=== PATIENT | male | born 1950 ===

== ENCOUNTER → 2023-04-28 | Outpatient (CLI) | payer MEDICARE ==
--- NOTE | 2023-04-30 08:32 | MR ---
EXAMINATION TYPE: MR Prostate wo/w con DATE OF EXAM: 04/28/2023 8:59 AM COMPARISON: None. CLINICAL INDICATION:Male, 72 years old with history of C61 MALIGNANT NEOPLASM OF PROSTATE; Prostate Cancer, Elevated PSA TECHNIQUE: Multi-planar, multi-sequence imaging of the pelvis is performed prior to and following the uncomplicated administration of bolus intravenous gadolinium. CONTRAST: 7.5 Gadavist Interpretive Criteria: PI-RADS v2.1 SERUM PSA: 20.19 on November 2022. SURGICAL PATHOLOGY: No data available. FINDINGS: Prostatic dimensions: 4.8 x 4.8 x 4.5 cm. Ellipsoid Volume:54.29 (PSA density=0.37 ng/mL/mL) CENTRAL GLAND (Central and Transition Zones/CZ+TZ): Multiple bilateral, heterogenous appearing hypertrophic stromal nodules, without suspicious lesion. M edian lobe hypertrophy with protrusion into the base of the bladder. (PI-RADS 2) PERIPHERAL ZONE (PZ): Bilateral linear, indistinct wedgelike areas of low ADC, and low T2 signal, No evidence of masslike a bnormality, or localized perfusional hypervascularity, to further suggest a focus of clinically signi ficant prostate cancer. (PI-RADS 2) SEMINAL VESICLES (SV): Symmetric and unremarkable. PERIPROSTATIC TISSUES: Unremarkable. LYMPH NODES: No enlarged pelvic lymph node. REMAINING PELVIS: Bladder wall is within normal limits given distention. No abnormal free or organized intrapelvic fluid collection. No pathologic bowel dilation or mural thickening. Bilateral fat containing inguinal hernias. OSSEOUS STRUCTURES: No suspicious osseous abnormality. IMPRESSION: 1. No specific features for high-risk prostate cancer. Maximum PI-RADS score: 2. 2. Moderate BPH, estimated gland volume 54.29 mL. 3. No suspicious osseous lesion. No lymphadenopathy. No evidence of prostate adenocarcinoma involving the periprostatic tissues.
== END | disposition home or self-care (01) ==
LOC: RADMRIMAIN 07:53
PROVIDERS: ATTEND Radiology Radiation Oncology
DX: C61 Malignant neoplasm of prostate (principal); N40.0 Benign prostatic hyperplasia without lower urinary tract symptoms
CPT/HCPCS: 72197; A9585

== ENCOUNTER → 2023-06-27 | Outpatient (CLI) | payer MEDICARE ==
--- NOTE | 2023-06-27 18:22 | BD ---
EXAMINATION TYPE: Axial Bone Density DATE OF EXAM: 06/27/2023 CLINICAL HISTORY: 72 years old Male. ICD-10 CODE: C79.51 SECONDARY MALIGNANT NEOPLASM OF BONE Height: 61.25in Weight: 146lb FRAX RISK QUESTIONS: Secondary Osteoporosis: RISK FACTORS HISTORY OF: MEDICATIONS: EXAM MEASUREMENTS: Bone mineral densitometry was performed using the [employer]. Bone mineral density as measured about the Lumbar spine is: ----- L1-L4(G/cm2): 1.419 T Score Values are as follows: ----- L1: 1.1 ----- L2: 1.1 ----- L3: 2.6 ----- L4: 2.6 ----- L1-L4: 2.0 Z Score Values are as follows: ----- L1: 1.8 ----- L2: 1.8 ----- L3: 3.3 ----- L4: 3.3 ----- L1-L4: 2.7 First dexa at [facility] Bone mineral density about the R hip (g/cm2): 0.962 Bone mineral density about the L hip (g/cm2): 1.010 T Score values are as follows: -----R Neck: -1.0 -----L Neck: -0.9 -----R Total: -0.4 -----L Total: 0.0 Z Score values are as follows: -----R Neck: 0.3 -----L Neck: 0.5 -----R Total: 0.1 -----L Total: 0.5 First dexa at [facility] FRAX%s: The graph provided illustrates a 3.8% chance for a major osteoporotic fx and a 1.0% chance fo r the hips probability for fx in 10 years time. IMPRESSION: Normal (Values between +1 and -1 indicate normal bone mass). However, note that measurements are bord ering on osteopenia at the right hip. Consider repeating this study in 5 years or sooner if there is some new clinical indication. NOTE: T-SCORE=SD OF THE YOUNG ADULT MEAN.
== END | disposition home or self-care (01) ==
LOC: RADBDWWP 12:44
PROVIDERS: ATTEND Nurse Practitioner
DX: C79.51 Secondary malignant neoplasm of bone (principal); M85.851 Other specified disorders of bone density and structure, right thigh; Z79.818 Long term (current) use of other agents affecting estrogen receptors and estrogen levels
CPT/HCPCS: 77080

== ENCOUNTER → 2024-06-17 | Outpatient (CLI) | payer MEDICARE ==
[2024-06-17 08:00] LABS: African American GFR (CKD) >90 (>60 ml/min/1.73 sqM); Anion Gap 6 mmol/L; Blood Urea Nitrogen 15 mg/dL (9-20); Calcium 8.4 mg/dL (8.4-10.2); Carbon Dioxide 29 mmol/L (22-30); Chloride 105 mmol/L (98-107); Glucose 99 mg/dL (74-99); Non-African American GFR(CKD) >90 (>60 ml/min/1.73 sqM); Potassium 4.2 mmol/L (3.5-5.1); Sodium 140 mmol/L (137-145)
[2024-06-17 10:23] LABS: HCT 39.2 % (39.6-50.0); HGB 13.3 g/dL (13.0-17.0); MCH 35.3 pg (27.0-32.0); MCHC 33.9 g/dL (32.0-37.0); NRBC Per 100 WBC 0 X 10*3/uL (0.00-0.01); Platelet Count 313 X 10*3/uL (140-440); RBC 3.77 X 10*6/uL (4.40-5.60); RDW 13.3 % (11.5-14.5); WBC 2.89 X 10*3/uL (4.50-10.00)
[2024-06-17 10:47] LABS: Magnesium 2.1 mg/dL (1.5-2.4); Phosphorus 2.3 mg/dL (2.4-5.1)
[2024-06-17 11:10] LABS: ALT 17 U/L (10-49); AST 41 U/L (14-35); Alkaline Phosphatase 117 U/L (41-126); Bilirubin, Conjugated <0.20 mg/dL (0.20-0.40); Bilirubin,Unconjugated >0.10 mg/dL (0.20-1.00); Globulin 2.5 g/dL (1.6-3.3); Prostate Specific Antigen <0.01 ng/mL (0.000-6.500); Total Bilirubin 0.3 mg/dL (0.3-1.2); Total Protein 6.5 g/dL (6.2-8.2)
--- NOTE | 2024-06-18 10:17 | CT ---
EXAMINATION TYPE: CT abdomen pelvis w con DATE OF EXAM: 06/17/2024 9:32 AM COMPARISON: None. CLINICAL INDICATION: Male, 73 years old with history of C61 MALIGNANT NEOPLASM OF PROSTATE, hx of [place]. TECHNIQUE: Axial images were obtained from above the diaphragm to the pubic rami in the axial plane a t 5 mm thick sections. Reconstructed images are reviewed on the computer in the coronal plane. CONTRAST: 100 ml mL of Isovue 300. Study performed with Oral Contrast DLP: 676.80 mGycm, Automated exposure control for dose reduction was used. FINDINGS: Limited CT sections are obtained the lung bases. The lung bases are clear. CT ABDOMEN: Liver: Couple small cysts within the liver. Spleen: Normal Pancreas: Normal Adrenal glands: The adrenal glands are normal. Gallbladder: Normal Kidneys: No masses are evident. No hydronephrosis is present. No cysts are present. No renal stone s are identified. Delayed images were obtained through the kidneys which remain unremarkable. Aorta: Vascular calcification is within the aorta. Inferior vena cava: Normal. CT PELVIS: Loops of bowel within the abdomen and pelvis are normal. There are loops of bowel which are incom pletely distended or lack oral contrast limiting their evaluation. Appendix: There appears to be a 1.2 cm diameter tubular structure extending from the cecum may be winnie endix. Significant inflammatory changes nonadjacent. Clinical correlation for early acute appendiciti s is recommended. Urinary bladder: Normal. Genitourinary structures: The prostate is enlarged. Patient posterior neoplasm is not specifically id entified. Osseous structures: There is a sclerotic rounded area within the medial left iliac wing may be a scle rotic metastasis. Series 4 image 61. Couple of sclerotic lesions are within the lateral left sacral a lar. Image 63-64. There is a sclerotic lesion within the mid thoracic vertebral body. Series 4 image 17 IMPRESSION: 1. Prominent prostate. Patient's known prostate neoplasm is not localized on this exam. 2. Scattered osseous sclerotic lesions suspicious for metastatic disease 3. Incidental note made of prominent appendix. Correlate for early appendicitis. [facility], , 06/18/2024 10:15 AM
== END | disposition home or self-care (01) ==
LOC: RADCTMAIN 06:55
PROVIDERS: ATTEND Urology
DX: C61 Malignant neoplasm of prostate (principal); C79.51 Secondary malignant neoplasm of bone; Z19.1 Hormone sensitive malignancy status
CPT/HCPCS: 84153; 80048; 80076; 83735; 84100; 85027; 84403; 74177; Q9967